=== PATIENT | male | born 1990 | race Caucasian/White ===

== ENCOUNTER 2021-10-10 21:44 | Emergency (ER) | payer OTHER ==
[~2021-10-10] VITALS: Ht 185.4 cm; Wt 117.9 kg
[~2021-10-10 21:44] MED LIST: ALBU90OI6 INH; AMOCLA875 PO; CEPH500 PO; CODGUAEL PO; CYCL10 PO; DOXY100 PO; ESCI10; ESCI10 PO; GUAI600T33 PO; HYDACE5 PO; NAPR500; NAPR500 PO; NITR100; PROC10 PO; RXSULTRIDS; SULTRIDS PO
[2021-10-10] MEDS ORDERED: ALBU2.5V5 INH (22:36)
[2021-10-10] MEDS ORDERED: FLUO10 PO (22:36)
== END 2021-10-10 23:39 | disposition home or self-care (01) ==
LOC: ER 21:44
DX: S60.031A Contusion of right middle finger without damage to nail, initial encounter (principal); W23.1XXA Caught, crushed, jammed, or pinched between stationary objects, initial encounter; Z91.041 Radiographic dye allergy status; Z88.8 Allergy status to other drugs, medicaments and biological substances
CPT/HCPCS: 73140; 90471; 90714; 99283-25